=== PATIENT | female | born 1990 | race Caucasian/White ===

== ENCOUNTER 2020-04-04 20:07 | Emergency (ER) | payer OTHER ==
[~2020-04-04] VITALS: Ht 165.1 cm; Wt 68.0 kg
[~2020-04-04 20:07] MED LIST: ACTICIN 5% CREA60 G1 TOP; BACTRIM DS TAB1 EACH PO; CEPHALEXIN 500500 M3 PO; CIPROFLOXACIN500 M1 PO; CIPROFLOXIN HC2.5 M1 OPHTHALMIC; ELIMITE60 GM TP; HYDROCODONE-AP1 EAC6 PO; IBUPROFEN 800800 MG PO; LIDOCAINE-HC 2100 GM RC; MUCINEX D TABL1 EAC1 PO; NOHOMEMEDICATIONS; NORCO 5-325 TA1 EACH PO; TRAMADOL 50 MG50 MG PO
[2020-04-04] MEDS ORDERED: TRAMADOL 50 MG50 MG PO (21:08)
[2020-04-04] MEDS ORDERED: IBUPROFEN 600600 M1 PO (21:08)
[2020-04-04 21:24] VITALS: BP 146/55
== END 2020-04-04 21:24 | disposition home or self-care (01) ==
LOC: M.ERS 20:07
DX: S52.591A Other fractures of lower end of right radius, initial encounter for closed fracture (principal); F17.210 Nicotine dependence, cigarettes, uncomplicated; W18.39XA Other fall on same level, initial encounter; Y93.89 Activity, other specified; Y92.89 Other specified places as the place of occurrence of the external cause; Y99.8 Other external cause status